=== PATIENT | male | born 1970 | race African-American/Black ===

== ENCOUNTER 2016-11-25 20:40 | Emergency (ER) | payer BC ==
--- NOTE | ~2016-11-25 | CR63 ---
[facility]. [facility] A Service of [facility] & [facility] RADIOLOGY TEXT RESULTS PATIENT: KACEY HAMILTON LOCATION: SED : 68 UNIT #: [id number] AGE: [address]: JAMES SOTELO SEX: M ORDER DR: [id number] [place] [id number] E MR#: [id number] Acc #: [id number] NAME: KACEY HAMILTON. : 1970 SEX: M STUDY DATE/TIME: 11/25/2016 20:48 UNIT: SED ROOM: STUDY DESCRIPTION: CR Chest 2 View Attending Physician: James Sotelo Ordering Physician: Physician Non-Staff Primary Care Physician: Miller Medina M.D. MEDICAL IMAGING REPORT This report is preliminary unless electronic signature is present. EXAM PA and lateral chest HISTORY Cough and shortness of air congestion today. FINDINGS 2 views of the chest demonstrate subsegmental infiltrate in the inferior right upper lobe. Although nonspecific this could be due to pneumonia. No pleural effusions. No additional infiltrates. Moderate cardiomegaly is similar to 03/24/2013 chest x-ray. Recommend follow up chest x-ray to document resolution after appropriate assessment and treatment for the right upper lobe infiltrate. Dictated by... Cedrick Hassan M.D. THIS IS AN ELECTRONICALLY VERIFIED REPORT Cedrick Hassan M.D. at 11/27/2016 12:30 PM DFL/dom TD: 11/27/2016 07:13 JOB #: [id number] MEDICAL IMAGING REPORT
[~2016-11-25 20:40] MED LIST: ALDACTONE25 MG PO; AMLODIPINE BESYL5 MG PO; ATARAX PO; BYSTOLIC2.5 MG PO; COREG PO; COZAAR100 MG PO; DOCUSATE SODIU100 MG PO; EXFORGE; FUROSEMIDE40 MG PO; HCTZ PO; HYDRALAZINE HC100 MG PO; HYDRALAZINE HCL50 MG PO; ISMO20 M2 PO; ISORDIL PO; LOSARTAN POTAS100 MG PO; WELCHOL625 MG PO
[2016-11-25 21:05] LABS: INFLUENZA A NEG (NEG); INFLUENZA B NEG (NEG)
== END 2016-11-25 23:02 | disposition home or self-care (01) ==
LOC: SED 20:40
PROVIDERS: Physician Assistant
DX: J18.9 Pneumonia, unspecified organism (principal); I10 Essential (primary) hypertension; E11.9 Type 2 diabetes mellitus without complications; Z98.890 Other specified postprocedural states
CPT/HCPCS: 71020; 87804; 99283